=== PATIENT | male | born 1970 | race Caucasian/White ===

== ENCOUNTER 2017-07-14 15:14 | Emergency (ER) | payer BC ==
[2017-07-14 16:08] LABS: HEMOGLOBIN 15.8 gm/dl (14.0-17.5); RED BLOOD COUNT 4.96 M/UL (4.20-5.50); WHITE BLOOD COUNT 8.2 K/UL (4.5-11.0)
[2017-07-14 16:24] LABS: BUN/CREATININE RATIO 13 (0-10)
== END 2017-07-14 18:31 | disposition home or self-care (01) ==
LOC: ER1 15:14
PROVIDERS: Family Medicine
DX: R10.10 Upper abdominal pain, unspecified (principal); I10 Essential (primary) hypertension; Z90.49 Acquired absence of other specified parts of digestive tract; R11.2 Nausea with vomiting, unspecified
CPT/HCPCS: 36415; 76705; 80053; 81001; 83690; 84484; 85025; 96374; 99284; C9113